=== PATIENT | male | born 1970 | race Caucasian/White ===

== ENCOUNTER 2017-09-03 14:52 | Emergency (ER) | payer OTHER ==
[2017-09-03] MEDS ORDERED: LIDOCAINE 1% MPF 5 ML VIAL ONE (15:39)
--- NOTE | 2017-09-03 16:18 | EDPHYS ---
Physician Documentation [facility] Name: Guy Reddy Age: 47 yrs Sex: Male : 1970 Arrival Date: 09/03/2017 Time: 14:53 Bed 20 Private MD: ED Physician Tanner Nur HPI: 09/03 15:29 This 47 yrs old Male presents to ER via Ambulatory with complaints of jr8 Laceration - finger. 15:29 The patient or guardian reports a laceration, clean, 1 cm(s), simple. Onset: The jr8 symptoms/episode began/occurred acutely, today. Modifying factors: The symptoms are alleviated by nothing, the symptoms are aggravated by nothing. Associated signs and symptoms: The patient has no apparent associated signs or symptoms. Severity of symptoms: At their worst the symptoms were mild, in the emergency department the symptoms are unchanged. The patient has not experienced similar symptoms in the past. The patient has not recently seen a physician. 16:33 The complaints affect the DIP of right little finger. Patient was using steam box tender and jr8 accidently lacerated finger . Historical: - Allergies: 15:02 Sulfa (Sulfonamide Antibiotics) (Hives); hb - Home Meds: 15:02 Metformin Oral [Active]; hb - PMHx: 15:02 Diabetes - NIDDM; hb - PSHx: 15:02 right leg surg; hb - Immunization history:: Last tetanus immunization: > 10 years ago. - Social history:: Smoking status: Patient/guardian denies using tobacco. ROS: 16:33 Eyes: Negative for injury, pain, redness, and discharge, ENT: Negative for injury, jr8 pain, and discharge, Neck: Negative for injury, pain, and swelling, Cardiovascular: Negative for chest pain, palpitations, and edema, Respiratory: Negative for shortness of breath, cough, wheezing, and pleuritic chest pain, Abdomen/GI: Negative for abdominal pain, nausea, vomiting, diarrhea, and constipation, Back: Negative for injury and pain, MS/Extremity: Negative for injury and deformity, Neuro: Negative for headache, weakness, numbness, tingling, and seizure. 16:33 Skin: Positive for laceration(s), of the DIP of right little finger. Exam: 16:33 Cardiovascular: Regular rate and rhythm with a normal S1 and S2. No gallops, murmurs, jr8 or rubs. Normal PMI, no JVD. No pulse deficits. Respiratory: Lungs have equal breath sounds bilaterally, clear to auscultation and percussion. No rales, rhonchi or wheezes noted. No increased work of breathing, no retractions or nasal flaring. MS/ Extremity: Pulses equal, no cyanosis. Neurovascular intact. Full, normal range of motion. Neuro: Awake and alert, GCS 15, oriented to person, place, time, and situation. Cranial nerves II-XII grossly intact. Motor strength 5/5 in all extremities. Sensory grossly intact. Cerebellar exam normal. Normal gait. 16:33 Skin: injury, laceration(s), the wound is approximately 1 cm(s), with a depth of .5 cm(s), of the DIP of right little finger. Palmar aspect, that can be described as no foreign body, linear, with mild bleeding. Vital Signs: 15:00 BP 126 / 92; Pulse 120; Resp 20; Temp 98.1; Pulse Ox 100% on R/A; Weight 115.21 kg; hb Height 5 ft. 11 in. (180.34 cm); Pain 10/10; 15:00 Body Mass Index 35.43 (115.21 kg, 180.34 cm) hb Laceration: 16:15 Wound Repair of 1cm ( 0.4in ) subcutaneous laceration to right 5th digit. Linear jr8 shaped.. Distal neuro/vascular/tendon intact. Anesthesia: Local anesthetic administered with 2 mls of 1% lidocaine. Wound prep: Moderate cleansing with betadine, Wound irrigation with saline, Wound explored extensively. Skin closed with 3 4-0 Prolene using interrupted sutures and sterile technique. Patient tolerated well. MDM: 15:04 Patient medically screened. jr8 16:15 Data reviewed: vital signs, nurses notes, and as a result, I will discharge patient. jr8 Data interpreted: Pulse oximetry: on room air is 100 %. Interpretation: normal. Counseling: I had a detailed discussion with the patient and/or guardian regarding: the historical points, exam findings, and any diagnostic results supporting the discharge/admit diagnosis, the need for outpatient follow up, a family practitioner, to return to the emergency department if symptoms worsen or persist or if there are any questions or concerns that arise at home. Administered Medications: No medications were administered Disposition: 09/03/17 16:17 Discharged to Home. Impression: Laceration without foreign body of finger without damage to nail. - Condition is Stable. - Discharge Instructions: Laceration Care, Adult. - Prescriptions for Keflex 250 mg Oral Capsule - take 1 capsule by ORAL route every 8 hours for 5 days; 15 capsule. - Medication Reconciliation Form, Thank You Letter, Antibiotic Education, Prescription Opioid Use form. - Follow up: Private Physician; When: 10 - 14 days; Reason: Wound Recheck, Recheck today's complaints, Continuance of care, Staple/Suture removal, Re-evaluation by your physician. - Problem is new. - Symptoms have improved. Addendum: 09/05/2017 08:09 Co-signature as Attending Physician, Tanner Nur MD I agree with the assessment and c horton plan of care. Signatures: Tanner Nur MD MD cha Roszak, Josh, PA PA jr8 Leah Magallon RN RN hb Chani Rutherford RN RN rk2
--- NOTE | 2017-09-03 16:18 | ER ---
Nurse's Notes [facility] Name: Guy Reddy Age: 47 yrs Sex: Male : 1970 Arrival Date: 09/03/2017 Time: 14:53 Bed 20 Private MD: Diagnosis: Laceration without foreign body of finger without damage to nail Presentation: 09/03 15:01 Presenting complaint: Patient states: Laceration to left little finger after cutting hb with razor blade while working on fuel line approx 30 mins ago. Transition of care: patient was not received from another setting of care. Complicating Factors: There are no complicating factors for this patient. Onset of symptoms was September 03, 2017. Care prior to arrival: None. 15:01 Method Of Arrival: Ambulatory hb 15:01 Acuity: ROSA 4 hb Triage Assessment: 15:40 General: Appears in no apparent distress. well developed, well nourished, Behavior is rk2 calm, cooperative. 15:40 Pain: Complains of pain in 5th finger right hand. Injury Description: Laceration rk2 sustained to 5th finger right hand. Historical: - Allergies: 15:02 Sulfa (Sulfonamide Antibiotics) (Hives); hb - Home Meds: 15:02 Metformin Oral [Active]; hb - PMHx: 15:02 Diabetes - NIDDM; hb - PSHx: 15:02 right leg surg; hb - Immunization history:: Last tetanus immunization: > 10 years ago. - Social history:: Smoking status: Patient/guardian denies using tobacco. Screenin:40 Abuse screen: Denies threats or abuse. Nutritional screening: No deficits noted. rk2 Tuberculosis screening: No symptoms or risk factors identified. Fall Risk None identified. Assessment: 15:40 Pain: Complains of pain in 5th finger right hand. Musculoskeletal: No deficits noted. rk2 Injury Description: Laceration is not bleeding. Vital Signs: 15:00 BP 126 / 92; Pulse 120; Resp 20; Temp 98.1; Pulse Ox 100% on R/A; Weight 115.21 kg; hb Height 5 ft. 11 in. (180.34 cm); Pain 10/10; 15:00 Body Mass Index 35.43 (115.21 kg, 180.34 cm) hb ED Course: 14:53 Patient arrived in ED. sb2 15:00 Arm band placed on left wrist. hb 15:01 Triage completed. hb 15:04 Rai Walton PA is PHCP. jr8 15:04 Tanner Nur MD is Attending Physician. jr8 15:40 Patient has correct armband on for positive identification. Bed in low position. Call rk2 light in reach. 15:45 Chani Rutherford, RN is Primary Nurse. rk2 16:23 No provider procedures requiring assistance completed. Patient did not have IV access rk2 during this emergency room visit. Administered Medications: No medications were administered Outcome: 16:17 Discharge ordered by . jr8 16:23 Discharged to home ambulatory. rk2 16:23 Condition: good 16:23 Discharge instructions given to patient, Prescriptions given X 1. 16:24 Patient left the ED. rk2 Signatures: Rai Walton PA PA 8 Leah Magallon RN RN Chani Rutherford, RN RN rk2 Peg Madison sb2 Corrections: (The following items were deleted from the chart) 15:45 15:01 Acuity: ROSA 3 hb hb
== END 2017-09-03 16:24 | disposition home or self-care (01) ==
LOC: ER 14:52
PROC: 0JQJ0ZZ Repair Right Hand Subcutaneous Tissue and Fascia, Open Approach (ICD-10-PCS; principal; 2017-09-03)
DX: S61.216A Laceration without foreign body of right little finger without damage to nail, initial encounter (principal); W26.0XXA Contact with knife, initial encounter; Y93.89 Activity, other specified; Y92.9 Unspecified place or not applicable; Y99.9 Unspecified external cause status; Z88.2 Allergy status to sulfonamides; E11.9 Type 2 diabetes mellitus without complications
CPT/HCPCS: 99282

== ENCOUNTER 2018-03-10 02:27 | Emergency (ER) | payer OTHER ==
[2018-03-10] MEDS ORDERED: LIDOCAINE 1% MPF 30 ML VIAL ONE (02:58)
[2018-03-10] MEDS ORDERED: CEFAZOLIN SODIUM 1 GM/VIAL ONE (03:21)
[2018-03-10] MEDS ORDERED: WATER FOR INJ,STERILE 10 ML ONE (03:22)
--- NOTE | 2018-03-10 03:42 | ER ---
Nurse's Notes [facility] Name: Guy Reddy Age: 47 yrs Sex: Male : 1970 Arrival Date: 03/10/2018 Time: 02:28 Bed 17 Private MD: Diagnosis: Laceration without foreign body of left hand Presentation: 03/10 02:40 Presenting complaint: Patient states: he cut his L thumb on a piece of metal approx 45 aa1 mins [employer]. Laceration with bleeding controlled noted to L thumb. Transition of care: patient was not received from another setting of care. Onset of symptoms was March 10, 2018. Risk Assessment: Do you want to hurt yourself or someone else? Patient reports no desire to harm self or others. Initial Sepsis Screen: Does the patient meet any 2 criteria? No. Patient's initial sepsis screen is negative. Does the patient have a suspected source of infection? Yes: Skin breakdown/wound. Care prior to arrival: None. 02:40 Method Of Arrival: Ambulatory aa1 02:40 Acuity: ROSA 3 aa1 Historical: - Allergies: 03:01 Sulfa (Sulfonamide Antibiotics) (Hives); aa1 - Home Meds: 03:01 Metformin Oral [Active]; Effexor Oral [Active]; Klonopin Oral [Active]; aa1 - PMHx: 03:01 Diabetes - NIDDM; Bipolar disorder; PTSD; aa1 - PSHx: 03:01 right leg surg; aa1 - Immunization history:: Last tetanus immunization: up to date. - Social history:: Smoking status: Patient uses tobacco products, chewing tobacco. - Family history:: not pertinent. - Ebola Screening: : No symptoms or risks identified at this time. Screenin:42 Abuse screen: Denies threats or abuse. Denies injuries from another. Nutritional aa1 screening: No deficits noted. Tuberculosis screening: No symptoms or risk factors identified. Fall Risk None identified. Assessment: 02:42 General: Appears in no apparent distress. comfortable, Behavior is calm, cooperative, aa1 appropriate for age. Pain: Complains of pain in left thumb. Neuro: Level of Consciousness is awake, alert, obeys commands, Oriented to person, place, time, situation, Moves all extremities. Full function. Respiratory: Airway is patent Respiratory effort is even, unlabored, Respiratory pattern is regular, symmetrical. GI: No signs and/or symptoms were reported involving the gastrointestinal system. : No signs and/or symptoms were reported regarding the genitourinary system. EENT: No signs and/or symptoms were reported regarding the EENT system. Derm: Skin is intact, is healthy with good turgor, Skin is pink, warm \T\ dry. Musculoskeletal: Circulation, motion, and sensation intact. Capillary refill < 3 seconds, Range of motion: intact in all extremities. Injury Description: Laceration sustained to palmar aspect of distal phalanx of left thumb is clean, 0.5 to 2.5 cm long, not bleeding, was sustained 30-60 minutes ago. 03:59 Reassessment: Patient appears in no apparent distress at this time. Patient is alert, aa1 oriented x 3, equal unlabored respirations, skin warm/dry/pink. Discussed d/c \T\ f/u instructions with pt \T\ mother; denies questions or concerns at this time. Vital Signs: 02:40 BP 122 / 77; Pulse 72; Resp 18; Temp 97.4; Pulse Ox 99% on R/A; Weight 111.13 kg; aa1 Height 5 ft. 11 in. (180.34 cm); Pain 1/10; 03:59 BP 110 / 71; Pulse 69; Resp 16; Pulse Ox 98% on R/A; Pain 0/10; aa1 02:40 Body Mass Index 34.17 (111.13 kg, 180.34 cm) aa1 ED Course: 02:28 Patient arrived in ED. al2 02:40 Arm band placed on right wrist. Patient placed in an exam room, on a stretcher. aa1 02:42 Patient has correct armband on for positive identification. Bed in low position. Call aa1 light in reach. Pulse ox on. NIBP on. Warm blanket given. 02:48 Tanner Nur MD is Attending Physician. [facility] 02:56 Glory Green RN is Primary Nurse. aa1 02:59 Triage completed. aa1 03:18 X-ray completed. Portable x-ray completed in exam room. Patient tolerated procedure kw well. 03:19 Hand Left 3 View XRAY In Process Unspecified. EDMS 03:28 Assist provider with laceration repair on palmar aspect of proximal phalanx of left aa1 thumb that was 2.5 cm. or less using sutures. Set up tray. Performed by Tanner Nur MD Patient tolerated well. Patient did not have IV access during this emergency room visit. 03:42 Baldomero Dewitt MD is Referral Physician. [facility] 03:59 Dressings: Adaptic X 1; left thumb Tube gauze X 1; left thumb. aa1 Administered Medications: 03:15 Drug: Lidocaine (1 %) 10 ml Volume: 5 ml; Route: Infiltration; aa1 03:28 Drug: Ancef 1 grams Route: IM; Site: right deltoid; aa1 03:59 Follow up: Response: No adverse reaction; Medication administered at discharge. aa1 Outcome: 03:42 Discharge ordered by MD. [facility] 03:59 Discharged to home ambulatory, with family. aa1 03:59 Condition: good 03:59 Discharge instructions given to patient, family, Instructed on discharge instructions, follow up and referral plans. medication usage, wound care, Demonstrated understanding of instructions, follow-up care, medications, wound care, Prescriptions given X 2. 04:01 Patient left the ED. aa1 Signatures: Dispatcher [employer] EDMS Glory Green, RN RN aa1 Tanner Nur MD MD cha Whitley, Mara White, Aminata belcher
--- NOTE | 2018-03-10 03:42 | EDPHYS ---
Physician Documentation [facility] Name: Guy Reddy Age: 47 yrs Sex: Male : 1970 Arrival Date: 03/10/2018 Time: 02:28 Bed 17 Private MD: ED Physician Tanner Nur HPI: 03/10 02:54 This 47 yrs old Male presents to ER via Unassigned with complaints of Thumb jeison Injury. 02:54 The patient or guardian reports decreased range of motion, a laceration, irregular, 4 jeison cm(s), pain. The complaints affect the left hand diffusely. Context: The problem was sustained at home. Onset: The symptoms/episode began/occurred just prior to arrival. Modifying factors: The symptoms are alleviated by elevation, holding still. Associated signs and symptoms: The patient has no apparent associated signs or symptoms. Severity of symptoms: At their worst the symptoms were mild, in the emergency department the symptoms are unchanged. The patient has not experienced similar symptoms in the past. Historical: - Allergies: 03:01 Sulfa (Sulfonamide Antibiotics) (Hives); aa1 - Home Meds: 03:01 Metformin Oral [Active]; Effexor Oral [Active]; Klonopin Oral [Active]; aa1 - PMHx: 03:01 Diabetes - NIDDM; Bipolar disorder; PTSD; aa1 - PSHx: 03:01 right leg surg; aa1 - Immunization history:: Last tetanus immunization: up to date. - Social history:: Smoking status: Patient uses tobacco products, chewing tobacco. - Family history:: not pertinent. - Ebola Screening: : No symptoms or risks identified at this time. ROS: 02:54 Constitutional: Negative for fever, chills, and weight loss, Eyes: Negative for injury, jeison pain, redness, and discharge, ENT: Negative for injury, pain, and discharge, Neck: Negative for injury, pain, and swelling, Cardiovascular: Negative for chest pain, palpitations, and edema, Respiratory: Negative for shortness of breath, cough, wheezing, and pleuritic chest pain, Abdomen/GI: Negative for abdominal pain, nausea, vomiting, diarrhea, and constipation, Back: Negative for injury and pain, : Negative for injury, bleeding, discharge, and swelling, Skin: Negative for injury, rash, and discoloration, Neuro: Negative for headache, weakness, numbness, tingling, and seizure, Psych: Negative for depression, anxiety, suicide ideation, homicidal ideation, and hallucinations, Allergy/Immunology: Negative for hives, rash, and allergies, Endocrine: Negative for neck swelling, polydipsia, polyuria, polyphagia, and marked weight changes, Hematologic/Lymphatic: Negative for swollen nodes, abnormal bleeding, and unusual bruising. 02:54 MS/extremity: Positive for decreased range of motion, laceration, pain, of the dorsal aspect of proximal phalanx of left thumb. Exam: 02:54 Constitutional: This is a well developed, well nourished patient who is awake, alert, jeison and in no acute distress. Head/Face: Normocephalic, atraumatic. Eyes: Pupils equal round and reactive to light, extra-ocular motions intact. Lids and lashes normal. Conjunctiva and sclera are non-icteric and not injected. Cornea within normal limits. Periorbital areas with no swelling, redness, or edema. ENT: Nares patent. No nasal discharge, no septal abnormalities noted. Tympanic membranes are normal and external auditory canals are clear. Oropharynx with no redness, swelling, or masses, exudates, or evidence of obstruction, uvula midline. Mucous membranes moist. Neck: Trachea midline, no thyromegaly or masses palpated, and no cervical lymphadenopathy. Supple, full range of motion without nuchal rigidity, or vertebral point tenderness. No Meningismus. Chest/axilla: Normal chest wall appearance and motion. Nontender with no deformity. No lesions are appreciated. Cardiovascular: Regular rate and rhythm with a normal S1 and S2. No gallops, murmurs, or rubs. Normal PMI, no JVD. No pulse deficits. Respiratory: Lungs have equal breath sounds bilaterally, clear to auscultation and percussion. No rales, rhonchi or wheezes noted. No increased work of breathing, no retractions or nasal flaring. Abdomen/GI: Soft, non-tender, with normal bowel sounds. No distension or tympany. No guarding or rebound. No evidence of tenderness throughout. Back: No spinal tenderness. No costovertebral tenderness. Full range of motion. MS/ Extremity: Pulses equal, no cyanosis. Neurovascular intact. Full, normal range of motion. Neuro: Awake and alert, GCS 15, oriented to person, place, time, and situation. Cranial nerves II-XII grossly intact. Motor strength 5/5 in all extremities. Sensory grossly intact. Cerebellar exam normal. Normal gait. Psych: Awake, alert, with orientation to person, place and time. Behavior, mood, and affect are within normal limits. 02:54 Skin: injury, laceration(s), the wound is approximately 4 cm(s), with a depth of .25 cm(s), of the dorsal aspect of proximal phalanx of left thumb and palmar aspect of proximal phalanx of left thumb, no rash present. Turgor: is excellent. Vital Signs: 02:40 BP 122 / 77; Pulse 72; Resp 18; Temp 97.4; Pulse Ox 99% on R/A; Weight 111.13 kg; aa1 Height 5 ft. 11 in. (180.34 cm); Pain 1/10; 03:59 BP 110 / 71; Pulse 69; Resp 16; Pulse Ox 98% on R/A; Pain 0/10; aa1 02:40 Body Mass Index 34.17 (111.13 kg, 180.34 cm) aa1 MDM: 02:48 Patient medically screened. [facility] 03/10 02:53 Order name: Hand Left 3 View XRAY [facility] 03/10 02:53 Order name: Prolene, Sutures; Complete Time: 02:57 [facility] 03/10 02:53 Order name: Dressing - Wound; Complete Time: 03:45 [facility] 03/10 02:53 Order name: Gloves, Sterile; Complete Time: 02:57 [facility] 03/10 02:53 Order name: Setup Suture Tray; Complete Time: 02:57 [facility] Administered Medications: 03:15 Drug: Lidocaine (1 %) 10 ml Volume: 5 ml; Route: Infiltration; aa1 03:28 Drug: Ancef 1 grams Route: IM; Site: right deltoid; aa1 03:59 Follow up: Response: No adverse reaction; Medication administered at discharge. aa1 Disposition: 03/10/18 03:42 Discharged to Home. Impression: Laceration without foreign body of left hand. - Condition is Stable. - Discharge Instructions: Laceration Care, Adult, Laceration Care, Adult, [id number]. - Prescriptions for Keflex 500 mg Oral Capsule - take 1 capsule by ORAL route every 6 hours for 10 days; 40 capsule. Tylenol- Codeine #3 300-30 mg Oral Tablet - take 2 tablets by ORAL route every 6 hours As needed; 26 tablet. - Medication Reconciliation Form, Thank You Letter, Antibiotic Education, Prescription Opioid Use form. - Follow up: Baldomero Dewitt; When: 2 - 3 days; Reason: Recheck today's complaints, Re-evaluation by your physician. - Problem is new. - Symptoms have improved. Signatures: Dispatcher [employer] EDGlory Torres RN RN aa1 Tanner Nur MD MD cha Corrections: (The following items were deleted from the chart) 04:01 03:42 03/10/2018 03:42 Discharged to Home. Impression: Laceration without foreign body aa1 of left hand. Condition is Stable. Discharge Instructions: Laceration Care, Adult, Laceration Care, Adult, [id number]. Prescriptions for Keflex 500 mg Oral Capsule - take 1 capsule by ORAL route every 6 hours for 10 days; 40 capsule, Tylenol-Codeine #3 300-30 mg Oral Tablet - take 2 tablets by ORAL route every 6 hours As needed; 26 tablet. and Forms are Medication Reconciliation Form, Thank You Letter, Antibiotic Education, Prescription Opioid Use. Follow up: Baldomero Dewitt; When: 2 - 3 days; Reason: Recheck today's complaints, Re-evaluation by your physician. Problem is new. Symptoms have improved. jeison
--- NOTE | 2018-03-10 09:37 | RAD REPORT ---
EXAM DESCRIPTION: RAD - Hand Left 3 View - 03/10/2018 3:19 am CLINICAL HISTORY: Hand pain, laceration to the thumb COMPARISON: None. FINDINGS: No fracture, dislocation or periosteal reaction noted. Soft tissue injury is seen along th e ventral surface the thumb near the IP joint. No retained foreign body is present. IMPRESSION: Negative examination for acute bone or joint finding. No retained foreign body.
== END 2018-03-10 04:01 | disposition home or self-care (01) ==
LOC: ER 02:27
PROC: 0JQK0ZZ Repair Left Hand Subcutaneous Tissue and Fascia, Open Approach (ICD-10-PCS; principal; 2018-03-10)
DX: S61.012A Laceration without foreign body of left thumb without damage to nail, initial encounter (principal); W45.8XXA Other foreign body or object entering through skin, initial encounter; Y93.9 Activity, unspecified; Y92.009 Unspecified place in unspecified non-institutional (private) residence as the place of occurrence of the external cause; Z72.0 Tobacco use; Z88.2 Allergy status to sulfonamides; E11.9 Type 2 diabetes mellitus without complications; F31.9 Bipolar disorder, unspecified; F43.10 Post-traumatic stress disorder, unspecified
CPT/HCPCS: 12002; 73130; 96372; 99284; J0690

== ENCOUNTER 2019-05-23 00:08 | Emergency (ER) | payer OTHER ==
--- NOTE | 2019-05-23 04:13 | ER ---
Nurse's Notes [facility] Name: Guy Reddy Age: 48 yrs Sex: Male : 1970 Arrival Date: 05/23/2019 Time: 00:10 Bed 13 Private MD: Diagnosis: Presentation: 05/23 00:21 Presenting complaint: Patient states: he was walking through the dark house and aa1 tripped, hitting the R side of his neck against the edge of the wall. Minor redness noted. Denies LOC or any other injury. Transition of care: patient was not received from another setting of care. Onset of symptoms was May 23, 2019. Risk Assessment: Do you want to hurt yourself or someone else? Patient reports no desire to harm self or others. Initial Sepsis Screen: Does the patient meet any 2 criteria? No. Patient's initial sepsis screen is negative. Does the patient have a suspected source of infection? No. Patient's initial sepsis screen is negative. Care prior to arrival: None. 00:21 Method Of Arrival: Ambulatory aa1 00:21 Acuity: ROSA 4 aa1 Triage Assessment: 00:23 General: Appears in no apparent distress. comfortable, Behavior is calm, cooperative, aa1 appropriate for age. Historical: - Allergies: 00:23 Sulfa (Sulfonamide Antibiotics) (Hives); aa1 - PMHx: 00:23 Bipolar disorder; Diabetes - NIDDM; PTSD; aa1 - PSHx: 00:23 right leg surg; aa1 - Immunization history:: Flu vaccine is up to date. - Social history:: Smoking status: Patient uses tobacco products, chewing tobacco. - Ebola Screening: : No symptoms or risks identified at this time. Screenin:23 Abuse screen: Denies threats or abuse. Nutritional screening: No deficits noted. ea Tuberculosis screening: No symptoms or risk factors identified. Assessment: 00:24 General: Appears uncomfortable, Behavior is appropriate for age. Pain: Complains of ea pain in right side of neck. Neuro: Level of Consciousness is awake, alert, obeys commands, Oriented to person, place, time, situation. Cardiovascular: Patient's skin is warm and dry. Respiratory: Airway is patent Respiratory effort is even, unlabored, Respiratory pattern is regular, symmetrical. Derm: Skin is pink, warm \\T\\ dry. 01:00 Reassessment: Patient and/or family updated on plan of care and expected duration. Pain ea level reassessed. Patient is alert, oriented x 3, equal unlabored respirations, skin warm/dry/pink. 02:15 Reassessment: Patient and/or family updated on plan of care and expected duration. Pain ea level reassessed. Patient is alert, oriented x 3, equal unlabored respirations, skin warm/dry/pink. 02:36 Reassessment: Pt returned from CT. ea 03:55 Reassessment: Patient and/or family updated on plan of care and expected duration. Pain ea level reassessed. Patient is alert, oriented x 3, equal unlabored respirations, skin warm/dry/pink. Pt requested to leave AMA, stated "I want to leave, this is taking too long" AMA form signed by patient, verbalized the understanding of possible adverse effects of leaving AMA. Vital Signs: 00:23 BP 134 / 78; Pulse 88; Resp 18; Temp 97.8; Pulse Ox 96% on R/A; Weight 136.08 kg; aa1 Height 5 ft. 11 in. (180.34 cm); Pain /10; 01:00 BP 130 / 86; Pulse 85; Resp 18; Pulse Ox 99% ; ea 03:15 BP 128 / 70; Pulse 78; Resp 18; Pulse Ox 98% on R/A; ea 00:23 Body Mass Index 41.84 (136.08 kg, 180.34 cm) aa1 ED Course: 00:10 Patient arrived in ED. ds1 00:22 Triage completed. aa1 00:23 Rosemary Villanueva, RN is Primary Nurse. ea 00:23 Patient has correct armband on for positive identification. Bed in low position. Call ea light in reach. Adult w/ patient. 00:23 Arm band placed on left wrist. Patient placed in an exam room, on a stretcher. aa1 00:29 [facility]C [facility]. snw 00:29 Guy Martin MD is Attending Physician. snw 04:46 CT Head C Spine In Process Unspecified. EDMS Administered Medications: No medications were administered Outcome: 03:58 AMA AMA form signed ea 03:58 Condition: stable 04:50 Patient left the ED. ea Signatures: Dispatcher [employer] EDMS Autenrieth, Glory, RN RN aa1 Vita Horton, HYPERCIL CORE TRANSFORMER ASSEMBLER-C HYPERCIL CORE TRANSFORMER ASSEMBLER-Csnw Siobhan Kolb ds1 Rosemary Villanueva, RN RN ea
--- NOTE | 2019-05-23 04:13 | EDPHYS ---
Physician Documentation [facility] Name: Guy Reddy Age: 48 yrs Sex: Male : 1970 Arrival Date: 05/23/2019 Time: 00:10 Bed 13 Private MD: ED Physician Guy Martin HPI: 05/23 01:00 This 48 yrs old Male presents to ER via Ambulatory with complaints of Fall snw Injury. 01:00 Details of fall: The patient fell from an upright position, while walking. Onset: The snw symptoms/episode began/occurred suddenly, just prior to arrival. Associated injuries: The patient sustained neck injury, tenderness, right lateral neck. Severity of symptoms: At their worst the symptoms were moderate, severe. It is unknown whether or not the patient has had similar symptoms in the past. It is unknown whether or not the patient has recently seen a physician. Historical: - Allergies: 00:23 Sulfa (Sulfonamide Antibiotics) (Hives); aa1 - PMHx: 00:23 Bipolar disorder; Diabetes - NIDDM; PTSD; aa1 - PSHx: 00:23 right leg surg; aa1 - Immunization history:: Flu vaccine is up to date. - Social history:: Smoking status: Patient uses tobacco products, chewing tobacco. - Ebola Screening: : No symptoms or risks identified at this time. ROS: 01:02 Constitutional: Negative for fever, chills, and weight loss, Eyes: Negative for injury, snw pain, redness, and discharge, ENT: Negative for injury, pain, and discharge, Cardiovascular: Negative for chest pain, palpitations, and edema, Respiratory: Negative for shortness of breath, cough, wheezing, and pleuritic chest pain, Abdomen/GI: Negative for abdominal pain, nausea, vomiting, diarrhea, and constipation, Back: Negative for injury and pain, : Negative for injury, bleeding, discharge, and swelling, MS/Extremity: Negative for injury and deformity, Skin: Negative for injury, rash, and discoloration, Neuro: Negative for headache, weakness, numbness, tingling, and seizure. 01:02 Neck: Positive for tenderness, of the right side of neck. Exam: 00:57 Head/Face: Normocephalic, atraumatic. Eyes: Pupils equal round and reactive to light, snw extra-ocular motions intact. Lids and lashes normal. Conjunctiva and sclera are non-icteric and not injected. Cornea within normal limits. Periorbital areas with no swelling, redness, or edema. ENT: Nares patent. No nasal discharge, no septal abnormalities noted. Tympanic membranes are normal and external auditory canals are clear. Oropharynx with no redness, swelling, or masses, exudates, or evidence of obstruction, uvula midline. Mucous membranes moist. Neck: Trachea midline, no thyromegaly or masses palpated, and no cervical lymphadenopathy. Supple, full range of motion without nuchal rigidity, or vertebral point tenderness. No Meningismus. Tenderness to right lateral neck Chest/axilla: Normal chest wall appearance and motion. Nontender with no deformity. No lesions are appreciated. Cardiovascular: Regular rate and rhythm with a normal S1 and S2. No gallops, murmurs, or rubs. Normal PMI, no JVD. No pulse deficits. Respiratory: Lungs have equal breath sounds bilaterally, clear to auscultation and percussion. No rales, rhonchi or wheezes noted. No increased work of breathing, no retractions or nasal flaring. Abdomen/GI: Soft, non-tender, with normal bowel sounds. No distension or tympany. No guarding or rebound. No evidence of tenderness throughout. + obesity Back: No spinal tenderness. No costovertebral tenderness. Full range of motion. 00:57 Constitutional: The patient appears alert, awake, frail, obese, pale. 00:57 Skin: Appearance: Color: pale. Vital Signs: 00:23 BP 134 / 78; Pulse 88; Resp 18; Temp 97.8; Pulse Ox 96% on R/A; Weight 136.08 kg; aa1 Height 5 ft. 11 in. (180.34 cm); Pain 06/22; 01:00 BP 130 / 86; Pulse 85; Resp 18; Pulse Ox 99% ; ea 03:15 BP 128 / 70; Pulse 78; Resp 18; Pulse Ox 98% on R/A; ea 00:23 Body Mass Index 41.84 (136.08 kg, 180.34 cm) aa1 MDM: 00:49 Patient medically screened. snw 02:01 Data reviewed: vital signs, nurses notes. Data interpreted: Pulse oximetry: on room air snw is 96 %. Interpretation: acceptable. Counseling: I had a detailed discussion with the patient and/or guardian regarding: the historical points, exam findings, and any diagnostic results supporting the discharge/admit diagnosis, radiology results, the need for outpatient follow up, to return to the emergency department if symptoms worsen or persist or if there are any questions or concerns that arise at home. Awaiting: CT scan results. Special discussion: Based on the history and exam findings, there is no indication for further emergent testing or inpatient evaluation. ED course: pt had bm in ED and is feeling better. Some Bipolar, grandiose behavior in ED but calm and takes direction well . 03:16 Transition of care: After a detail discussion of the patient's case, care is snw transferred to Guy Martin MD. 20:50 ED course: CT head and C-spine noted wnl. no acute traumatic process. wa 20:56 ED course: pt signed AMA prior to return fo CT findings as did not want to wait. risks wa explained and accepted. did not want to wait for appropriate d/c and f/u paperwork prior to departure either. he walked out of department without it. 05/23 00:56 Order name: CT Head C Spine; Complete Time: 20:50 snw Administered Medications: No medications were administered Disposition: 08:45 Co-signature as Attending Physician, Guy Martin MD I agree with the assessment and nj plan of care. Disposition: 05/23/19 04:11 Patient has left against medical advice. - Patients states they are going to Home. - Condition is Stable. Signatures: Dispatcher [employer] EDAZ Glory Gonzalez RN RN aa1 Vita Horton, UNDER PRESSER-C UNDER PRESSER-Csnw Rosemary Villanueva RN RN ea Appiah, William, MD MD wa Corrections: (The following items were deleted from the chart) 04:50 04:11 05/23/2019 04:11 Patients has left against medical advice. Patient states they ea are going to Home. Condition is Stable. bubba
[2019-05-23 05:04] VITALS: TEMP 97.8
[2019-05-23 05:06] VITALS: BP 128/70; O2SAT 98
--- NOTE | 2019-05-23 11:53 | RAD REPORT ---
EXAM DESCRIPTION: CT - Head C Spine Mpr Wo Con - 05/23/2019 5:54 am CLINICAL HISTORY: Pain;Smash injury COMPARISON: None available TECHNIQUE: Axial CT of the head obtained from the skull apex to the skull base without contrast. Axi al CT images of the cervical spine obtained from the skull base through the thoracic inlet. Sagittal and coronal reformatted images available. FINDINGS: CT head: No acute intracranial hemorrhage identified. No mass, mass effect, shift of the midline, abnormal ext ra-axial fluid collection or CT evidence of acute ischemic change identified. The ventricular system is unremarkable. No acute abnormalities of the supratentorial white matter, basal ganglia, cerebell um, or brainstem. The visualized paranasal sinuses and the mastoids are clear. Hyperostosis interna. No skull fracture identified. Visualized orbits and globes are unremarkable. Cervical CT: Straightening of the cervical lordosis may be secondary to patient positioning. The atlantoaxial, a tlantodental, and occipitoatlantal intervals are preserved. No fracture identified. Vertebral body height preserved. Prevertebral soft tissues are unremarkable. Mild multilevel endplate spondylosis. Degenerative change of the atlantodental articulation. Interver tebral disc height relatively well-preserved. Visualized skull base is intact. No fracture of the visualized facial bones. Visualized mastoid air c ells and paranasal sinuses are well aerated. Visualized thyroid is unremarkable. No cervical lymphadenopathy. No pneumothorax in the visualized lung apices. IMPRESSION: 1. No acute intracranial abnormality. 2. No acute fracture or subluxation of the cervical spine. 3. Mild multilevel degenerative change of the cervical spine. This exam was performed according to our departmental dose-optimization program, which includes autom ated exposure control, adjustment of the mA and/or kV according to patient size and/or use of iterati ve reconstruction technique. Electronically signed by: Rustam Mota 05/23/2019 4:40 AM COLLISION WORKER Due to temporary technical issues with the PACS/Fluency reporting system, reports are being signed by the in house radiologist as a courtesy to ensure prompt reporting. The interpreting radiologist is f ully responsible for the content of the report.
== END 2019-05-23 04:50 | disposition left against medical advice (07) ==
LOC: ER 00:08
DX: M54.2 Cervicalgia (principal); W19.XXXA Unspecified fall, initial encounter; Y93.01 Activity, walking, marching and hiking; Y92.9 Unspecified place or not applicable; Z88.2 Allergy status to sulfonamides; E11.9 Type 2 diabetes mellitus without complications; F17.220 Nicotine dependence, chewing tobacco, uncomplicated; F31.9 Bipolar disorder, unspecified
CPT/HCPCS: 70450; 72125; 99283